=== PATIENT | female | born 1995 ===

== ENCOUNTER 2018-12-05 13:29 | Emergency (ER) | payer OTHER ==
[~2018-12-05] VITALS: Ht 154.9 cm; Wt 56.7 kg
[2018-12-05] MEDS ORDERED: MONONESSA 28 T1 EACH PO (14:08)
== END 2018-12-05 19:09 | disposition home or self-care (01) ==
LOC: ER 13:29
DX: B34.9 Viral infection, unspecified (principal); J06.9 Acute upper respiratory infection, unspecified; M94.0 Chondrocostal junction syndrome [Tietze]

== ENCOUNTER 2021-03-28 23:02 | Emergency (ER) | payer OTHER ==
[~2021-03-28] VITALS: Ht 154.9 cm; Wt 55.3 kg
[~2021-03-28 23:02] MED LIST: MONONESSA 28 T1 EACH PO
[2021-03-29] MEDS ORDERED: ORPHENADRINE C100 MG PO (01:22)
== END 2021-03-29 01:51 ==
LOC: ER 23:02
DX: S13.4XXA Sprain of ligaments of cervical spine, initial encounter (principal); S39.012A Strain of muscle, fascia and tendon of lower back, initial encounter; M79.662 Pain in left lower leg; M79.661 Pain in right lower leg; V49.88XA Car occupant (driver) (passenger) injured in other specified transport accidents, initial encounter; Y93.89 Activity, other specified; Y92.488 Other paved roadways as the place of occurrence of the external cause; Y99.8 Other external cause status

== ENCOUNTER → 2021-05-18 | Emergency (ER) | payer OTHER ==
[~2021-05-18] VITALS: Ht 167.6 cm; Wt 59.0 kg
[~2021-05-18] MED LIST changes: +ORPHENADRINE C100 MG PO; +SPRYCEL20 MG
== END | disposition home or self-care (01) ==
LOC: ER 22:53
DX: R00.2 Palpitations (principal); F41.1 Generalized anxiety disorder; F41.0 Panic disorder [episodic paroxysmal anxiety]; T65.894A Toxic effect of other specified substances, undetermined, initial encounter; Y92.89 Other specified places as the place of occurrence of the external cause

== ENCOUNTER 2022-11-14 11:32 | Emergency (ER) | payer OTHER ==
[~2022-11-14] VITALS: Ht 154.9 cm; Wt 62.6 kg
[2022-11-14] MEDS ORDERED: SPRINTEC 28 DA1 EACH PO (12:51)
[2022-11-14] MEDS ORDERED: TRAMADOL HCL50 MG PO (15:48)
== END 2022-11-14 15:51 | disposition home or self-care (01) ==
LOC: ER 11:32
DX: M25.552 Pain in left hip (principal); M54.50 Low back pain, unspecified; Z88.6 Allergy status to analgesic agent